=== PATIENT | male | born 1985 | race Caucasian/White ===

== ENCOUNTER 2017-04-08 22:35 | Emergency (ER) | payer BC ==
[2017-04-08] MEDS ORDERED: Ketorolac Tromethamine 30 MG/ML VIAL ONE (22:46)
== END 2017-04-08 23:18 | disposition home or self-care (01) ==
LOC: SCSER 22:35
DX: K02.9 Dental caries, unspecified (principal); G40.409 Other generalized epilepsy and epileptic syndromes, not intractable, without status epilepticus; F17.210 Nicotine dependence, cigarettes, uncomplicated
CPT/HCPCS: 96372; J1885

== ENCOUNTER 2017-05-31 20:21 | Emergency (ER) | payer BC | END 2017-05-31 21:14 | disposition home or self-care (01) | LOC: SCSER 20:21 | DX: L03.032 Cellulitis of left toe (principal); F17.210 Nicotine dependence, cigarettes, uncomplicated; Z71.6 Tobacco abuse counseling | CPT/HCPCS: 99406 ==

== ENCOUNTER 2017-12-27 20:55 | Emergency (ER) | payer BC | END 2017-12-27 21:44 | disposition home or self-care (01) | LOC: SCSER 20:55 | DX: M79.642 Pain in left hand (principal); F17.210 Nicotine dependence, cigarettes, uncomplicated; X50.3XXA Overexertion from repetitive movements, initial encounter; Y92.79 Other farm location as the place of occurrence of the external cause | CPT/HCPCS: 99283 ==

== ENCOUNTER 2018-01-06 14:11 | Outpatient (CLI) | payer BC | END 2018-01-06 14:12 | disposition home or self-care (01) | LOC: BICRAD 14:11 | PROVIDERS: ATTEND Family Medicine | DX: M25.532 Pain in left wrist (principal); G56.02 Carpal tunnel syndrome, left upper limb ==